=== PATIENT | female | born 1990 | race American Indian/Alaskan Native ===

== ENCOUNTER 2017-10-28 08:33 | Emergency (ER) | payer BC, MEDICAID ==
--- NOTE | 2017-10-28 10:50 | Emergency Department Report ---
ED Female HPI - General Chief complaint: Rectal Pain Stated complaint: HEMROIDS/BLEEDING Time Seen by Provider: 10/28/17 10:40 Source: patient, family Mode of arrival: Ambulatory Limitations: No Limitations - History of Present Illness Initial comments: Patient reports that she has surgery to have hemorrhoids remove on Monday but she does have an rectal pain and some rectal bleeding in when she wipes. Patient says she is constipated and she's had chronic constipation and also chronic hemorrhoid since she had her baby. She says that she could not stand the pain so she came in but she has planned surgery this upcoming Monday. She says she has a bowel movement daily and she had one today and it was very hard and painful. Denies any profuse bleeding in. Bleeding only with wiping. She also reports that she was told by her surgeon that she has internal and external hemorrhoid. She says she's been followed by a surgeon was given to be doing her surgery. Pain feels burning and throbbing with bowel movement but better without bowel movement. Denies any fever or chills. Denies any urinary burning, frequency or urgency. Denies any nausea or vomiting. Denies any abdominal pain. Patient says she took Motrin at home but it did not help. MD Complaint: other (rectal pain and bleeding from hemorrhoids) -: month(s) Location: other (rectum) Radiation: non-radiating Severity: severe Severity scale (0 -10): 10 Quality: burning Consistency: intermittent Improves with: none Worsens with: other (bowel movement) Are you Now?: No Associated Symptoms: other (constipation and hemorrhoids). denies: vaginal discharge, vaginal bleeding, abdominal pain, nausea/vomiting, fever/chills, headaches, loss of appetite, dysuria, hematuria, rash, seizure, shortness of breath, syncope, weakness - Related Data Previous Rx's Medication Instructions Recorded Last Taken Type Docusate Sodium [Colace] 100 mg PO BID 30 Days #60 capsule 10/28/17 Unknown Rx HYDROcodone/APAP 5-325 [[place] 1 each PO Q6HR PRN #12 tablet 10/28/17 Unknown Rx 5-325 mg TAB] Hydrocortisone [Anucort-HC SUPPOS] 25 mg RC BID PRN #10 supp.rect 10/28/17 Unknown Rx Hydrocortisone [Anusol-Hc] 30 gm RC BID PRN #1 cream..g. 10/28/17 Unknown Rx Allergies Allergy/AdvReac Type Severity Reaction Status Date / Time No Known Allergies Allergy Verified 10/28/17 08:45 ED Review of Systems ROS: Stated complaint: HEMROIDS/BLEEDING Other details as noted in HPI Comment: All other systems reviewed and negative Constitutional: no symptoms reported Respiratory: no symptoms reported Cardiovascular: denies: chest pain, palpitations, dyspnea on exertion, edema, syncope, paroxysmal nocturnal dyspnea Gastrointestinal: constipation, hematochezia (from hemorrhoids), other. denies : abdominal pain, nausea, vomiting, diarrhea, hematemesis, melena Genitourinary: other (hemorrhoids). denies: urgency, dysuria, frequency, hematuria, discharge, abnormal menses, dyspareunia Musculoskeletal: denies: back pain, joint swelling, arthralgia, myalgia Skin: denies: rash Neurological: denies: headache, weakness, numbness, paresthesias, abnormal gait , vertigo ED Past Medical Hx - Past Medical History Previous Medical History?: Yes Hx Hypertension: No Hx Congestive Heart Failure: No Hx Diabetes: No Hx Deep Vein Thrombosis: No Hx Renal Disease: No Hx Sickle Cell Disease: No Hx Seizures: No Hx Asthma: Yes (past hx, no flare up in years, no inhaler use) Hx COPD: No Hx HIV: No Additional medical history: Chronic constipation and hemorrhoids - Surgical History Past Surgical History?: No - Family History Family history: hypertension - Social History Smoking Status: Never Smoker Substance Use Type: None - Medications Home Medications: Home Medications Medication Instructions Recorded Confirmed Last Taken Type Docusate Sodium [Colace] 100 mg PO BID 30 Days #60 capsule 10/28/17 Unknown Rx HYDROcodone/APAP 5-325 [[place] 1 each PO Q6HR PRN #12 tablet 10/28/17 Unknown Rx 5-325 mg TAB] Hydrocortisone [Anucort-HC SUPPOS] 25 mg RC BID PRN #10 supp.rect 10/28/17 Unknown Rx Hydrocortisone [Anusol-Hc] 30 gm RC BID PRN #1 cream..g. 10/28/17 Unknown Rx ED Physical Exam - General Limitations: No Limitations General appearance: alert, in no apparent distress - Head Head exam: Present: atraumatic, normocephalic, normal inspection - Eye Eye exam: Present: normal appearance, PERRL, EOMI Pupils: Present: normal accommodation - ENT ENT exam: Present: normal exam, normal orophraynx, mucous membranes moist - Neck Neck exam: Present: normal inspection, full ROM. Absent: tenderness, lymphadenopathy - Respiratory Respiratory exam: Present: normal lung sounds bilaterally. Absent: respiratory distress, chest wall tenderness - Cardiovascular Cardiovascular Exam: Present: regular rate, normal rhythm, normal heart sounds - GI/Abdominal GI/Abdominal exam: Present: soft, normal bowel sounds. Absent: distended, tenderness, guarding, rebound, rigid, organomegaly, mass, bruit, pulsatile mass , hernia - Rectal Rectal exam: Present: normal inspection, normal rectal tone, hemorrhoids (noted to nonthrombosed hemorrhoid externally. Hemorrhoid felt internally. No overt sinus bleeding noted.), tenderness, other (internal hemorrhoids). Absent: fecal impaction, mass - Extremities Exam Extremities exam: Present: normal inspection, full ROM, normal capillary refill , other (no clubbing, cyanosis or edema. +2 pulses in all extremities). Absent : tenderness, pedal edema, joint swelling, calf tenderness - Back Exam Back exam: Present: normal inspection, full ROM, other (ambulates without any difficulties). Absent: tenderness, CVA tenderness (R), CVA tenderness (L), muscle spasm, paraspinal tenderness, vertebral tenderness, rash noted - Neurological Exam Neurological exam: Present: alert, oriented X3, normal gait - Psychiatric Psychiatric exam: Present: normal affect, normal mood - Skin Skin exam: Present: warm, dry, intact, normal color ED Course Vital Signs 10/28/17 08:45 Temperature 98.5 F Pulse Rate 90 Respiratory 18 Rate Blood Pressure 142/97 O2 Sat by Pulse 100 Oximetry - Reevaluation(s) Reevaluation #1: 10/28/17 13:18 Patient given 7.5/325 mg, Colace 100 mg by mouth emergency room which lead to pain. Topical let applied to hemorrhoids externally. ED Medical Decision Making - Medical Decision Making ED course: Patient reported that she has internal and external hemorrhoid and she is having constipation and some bleeding when she wipes. She says she is scheduled for surgery on 10/30/2017 but she came to the hospital because she is in a lot of pain. She is taking Motrin at home that's not helping. Patient physical findings for internal and external hemorrhoid. She was given Sylvania 7.5 /325 mg one tablet by mouth, Colace one tablet by mouth in emergency room for pain which relieved her pain , topical let applied to external hemorrhoids. No signs of Thrombosis. I discussed the patient that she needs to call her surgeon that she was in emergency room to be treated for pain and bleeding secondary to hemorrhoid. She was understanding the diagnosis, treatment plan and to keep her appointment for surgery and Monday. Patient discharged home with prescription for [place], Colace and Anusol topical and suppository. Critical care attestation.: If time is entered above; I have spent that time in minutes in the direct care of this critically ill patient, excluding procedure time. ED Disposition Clinical Impression: Rectal or anal pain, Acute hemorrhoid, Blood in stool Disposition: - TO HOME OR SELFCARE Is pt being admited?: No Does the pt Need Aspirin: No Condition: Stable Instructions: Hemorrhoids (ED), Hydrocortisone (Rectal), Rectal Bleeding (ED), Constipation (ED), High Fiber Diet (ED) Additional Instructions: Please use Anusol suppository and cream as instructed Keep appointment for hemorrhoidectomy on Monday See discharge insertion paperwork on high fiber diet Increase fluid intake Please not drive or operate heavy machinery while taking S[place] as this medication causes drowsiness and take Colace which is a stool softener twice daily Prescriptions: Docusate Sodium [Colace] 100 mg PO BID 30 Days #60 capsule HYDROcodone/APAP 5-325 [[place] 5-325 mg TAB] 1 each PO Q6HR PRN #12 tablet PRN Reason: moderate to severe pain Hydrocortisone [Anucort-HC SUPPOS] 25 mg RC BID PRN #10 supp.rect PRN Reason: Hemorrhoids Hydrocortisone [Anusol-Hc] 30 gm RC BID PRN #1 cream..g. PRN Reason: Hemorrhoids Referrals: PRIMARY CARE, [Primary Care Provider] - 10/30/17 keep appointments, with surgeon [Other] - 10/30/17 (Please keep appointment to have hemorrhoidectomy on 10/30/2017) Forms: Work/School Release Form(ED), Accompanied Note
[2017-10-28] MEDS ORDERED: COLACE PO ONE (10:51)
[2017-10-28] MEDS ORDERED: NORCO 7.5/325 PO ONE (10:51)
[2017-10-28] MEDS ORDERED: LET TOPICAL TP ONE (10:51)
[2017-10-28 13:50] VITALS: BP 136/89
== END 2017-10-28 13:50 | disposition home or self-care (01) ==
LOC: ED 08:33
DX: K62.5 Hemorrhage of anus and rectum (principal); J45.909 Unspecified asthma, uncomplicated
CPT/HCPCS: 99282

== ENCOUNTER 2020-10-10 17:52 | Emergency (ER) | payer SELFPAY ==
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
[2020-10-10] MEDS ORDERED: ACETAMINOPHEN 500 MG TAB PO ONE (20:29)
[2020-10-10] MEDS ORDERED: IBUPROFEN 600 MG TAB PO ONE (20:29)
--- NOTE | 2020-10-10 21:05 | XRay Report ---
LEFT SHOULDER 4 VIEWS INDICATION / CLINICAL INFORMATION: Left shoulder injury/pain. COMPARISON: None available. FINDINGS: BONES and JOINT(S): No acute fracture or subluxation. No significant arthritis. SOFT TISSUES: No significant abnormality. ADDITIONAL FINDINGS: None. IMPRESSION: 1. No acute findings. Signer Name: Jules Álvarez MD Signed: 10/10/2020 9:01 PM Workstation Name: [id number]
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
[2020-10-10 23:43] VITALS: BP 118/84
== END 2020-10-10 23:43 | disposition home or self-care (01) ==
LOC: ED 17:52
DX: S43.402A Unspecified sprain of left shoulder joint, initial encounter (principal); M62.838 Other muscle spasm; J45.909 Unspecified asthma, uncomplicated; Z79.899 Other long term (current) drug therapy; V49.49XA Driver injured in collision with other motor vehicles in traffic accident, initial encounter; Y92.410 Unspecified street and highway as the place of occurrence of the external cause; Y93.89 Activity, other specified; Y99.8 Other external cause status
CPT/HCPCS: 70450; 72125